=== PATIENT | female | born 1990 | race Asian ===

== ENCOUNTER 2016-11-29 20:49 | Emergency (ER) | payer OTHER ==
[~2016-11-29] VITALS: Ht 175.3 cm; Wt 77.2 kg
[2016-11-29 20:56] VITALS: Ht 175.3 cm; Wt 77.2 kg
[2016-11-29] MEDS ORDERED: SOD CHLORIDE 0.9% 1,000 ML IV STA (21:01)
[2016-11-29] MEDS ORDERED: LORAZEPAM 2 MG INJ IV ONE (21:30)
[2016-11-29 21:48] LABS: ADD SCAN DIFF NO
[2016-11-29 21:54] LABS: BASOPHIL # 0.1 10^3/ul (0.0-0.1); BASOPHILS % 0.7 % (0.0-2.0); EOSINOPHILS # 0.1 10^3/ul (0.0-0.5); EOSINOPHILS % 0.9 % (0.0-7.0); HEMATOCRIT 43.2 % (37.0-47.0); HEMOGLOBIN 14.8 g/dl (12.0-16.0); LYMPHOCYTES # 1.7 10^3/ul (0.8-2.9); LYMPHOCYTES % 22.8 % (15.0-51.0); MEAN CORPUSCULAR HEMOGLOBIN 31.6 pg (29.0-33.0); MEAN CORPUSCULAR HGB CONC 34.3 g/dl (32.0-37.0); MEAN CORPUSCULAR VOLUME 92.3 fl (82.0-101.0); MEAN PLATELET VOLUME 8.9 fl (7.4-10.4); MONOCYTE # 0.5 10^3/ul (0.3-0.9); NEUTROPHIL # 5.2 10^3/ul (1.6-7.5); NEUTROPHILS % 69.3 % (39.0-77.0); PLATELET COUNT 276 10^3/UL (140-415); RED BLOOD COUNT 4.68 10^6/ul (4.20-5.40); RED CELL DISTRIBUTION WIDTH 11.7 % (11.5-14.5); WHITE BLOOD COUNT 7.5 10^3/ul (4.8-10.8)
[2016-11-29 21:56] LABS: ADD UMIC YES; URINE BILIRUBIN (Dip) NEGATIVE (NEGATIVE); URINE BLOOD (Dip) TRACE (NEGATIVE); URINE COLOR YELLOW (YELLOW); URINE GLUCOSE (Dip) NEGATIVE (NEGATIVE); URINE KETONES (Dip) NEGATIVE (NEGATIVE); URINE LEUKOCYTE ESTERASE (Dip) NEGATIVE (NEGATIVE); URINE NITRITE (Dip) NEGATIVE (NEGATIVE); URINE TOTAL PROTEIN (Dip) NEGATIVE (NEGATIVE); URINE UROBILINOGEN (Dip) 0.2 E.U./dL (0.1-1.0)
[2016-11-29] MEDS ORDERED: LORA-186 PO (22:04)
[2016-11-29] MEDS ORDERED: IBUP200C11 PO (22:04)
[2016-11-29] MEDS ORDERED: DAYQUIL PO (22:04)
[2016-11-29] MEDS ORDERED: NYQUIL PO (22:04)
[2016-11-29 22:06] LABS: URINE RBCS 0-2 /HPF (0)
[2016-11-29 22:07] LABS: SQUAMOUS EPITHELIAL CELL,UR RARE
[2016-11-29 22:10] LABS: ALBUMIN 5.5 g/dl (3.3-4.9); CHLORIDE 101 mmol/L (97-110)
[2016-11-29 22:11] LABS: SODIUM 142 mmol/L (135-144)
[2016-11-29 22:13] LABS: ASPARTATE AMINO TRANSFERASE 25 IU/L (15-46); BILIRUBIN,INDIRECT 0.3 mg/dl (0-1.1); BILIRUBIN,TOTAL 0.3 mg/dl (0.2-1.3); CARBON DIOXIDE 23 mmol/L (21-31); CREATININE 0.67 mg/dl (0.44-1.00); TOTAL PROTEIN 9.7 g/dl (6.1-8.1)
[2016-11-29 22:14] LABS: ALANINE AMINOTRANSFERASE 26 IU/L (13-69); ALKALINE PHOSPHATASE 76 IU/L (42-121); ANION GAP 21 (8-16); BLOOD UREA NITROGEN 11 mg/dl (7-20); CALCIUM 9.9 mg/dl (8.4-10.2); GLUCOSE 95 mg/dl (70-220)
--- NOTE | 2016-11-29 22:22 | ERD ---
ER Documentation Chief Complaint Date/Time DATE: 11/29/16 TIME: 22:16 Chief Complaint dizziness, weakness x15 mins Hr >157. code green on 3rd floor staff. HPI 26-year-old woman complains of 10-15 minutes paresthesias, dizziness and palpitations shortly after drinking a caffeinated "monster" drink. She denies loss of consciousness, no chest pain or shortness of breath, no fevers or chills , no vomiting or diarrhea. Patient denies calf or leg swelling. Patient states she has had similar less intense anxiety symptoms in the past. ROS All systems reviewed and are negative except as per history of present illness. Medications Home Meds Reported Medications [Nyquil/Dayquil] Unknown Strength No Conflict Check, PO PRN 11/29/16 Loratadine* (Claritin*) 10 Mg Tablet, 10 MG PO PRN, TAB 11/29/16 Ibuprofen* (Advil*) 200 Mg Capsule, 200 MG PO Q6H Y for PAIN, CAP 11/29/16 Allergies Allergies: Coded Allergies: avocado (Unverified Allergy, Unknown, ITCHINESS, SWOLLEN LIPS, 11/29/16) PMhx/Soc None Medical and Surgical Hx: pt denies Medical Hx, pt denies Surgical Hx History of Surgery: No Anesthesia Reaction: No Hx Neurological Disorder: No Hx Respiratory Disorders: No Hx Cardiac Disorders: No Hx Psychiatric Problems: No Hx Miscellaneous Medical Probl: No Hx Alcohol Use: Yes Hx Substance Use: No Hx Tobacco Use: Yes Smoking Status: Current every day smoker FmHx Family History: No diabetes Physical Exam Vitals Vital Signs Date Time Temp Pulse Resp B/P Pulse Ox O2 Delivery O2 Flow Rate FiO2 11/30/16 00:40 98.0 76 18 134/74 100 11/29/16 23:35 98.0 68 18 121/70 100 11/29/16 20:56 98.0 110 24 128/91 100 Physical Exam GENERAL: Well-developed, well-nourished, appears anxious HEENT: Moist mucous membranes, pink conjunctiva, no cervical spine tenderness or step-off deformities, no goiter, no jaundice or icterus, extraocular movements intact without pain. No submandibular induration, and no pharyngeal erythema NEURO: Alert and oriented 3, cranial nerves II through XII intact bilaterally, pupils equal round reactive to light, no focal deficits or facial asymmetry, sensation intact distally Strength 5/5 in upper and lower extremities bilaterally CARDIAC: Regular rate and rhythm, no murmurs rubs or gallops LUNGS: Clear bilaterally no wheezing crackles or stridor ABDOMEN: Soft nontender, no guarding, no rigidity, no rebound, no psoas sign no obturator sign. Normoactive bowel sounds SKIN: Warm and dry to touch, no abrasions, contusions, or hematomas, no lacerations, no ecchymosis, no target lesions, and without ulcers EXTREMITIES: No clubbing cyanosis or edema, calves are bilaterally symmetrical, no Homans sign, no popliteal cord sign. Distal pulses equal and bilateral PSYCH: Anxious Result Diagram: 11/29/16212911/29/162129 Results 24 hrs Laboratory Tests Test 11/29/16 21:15 11/29/16 21:30 Urine Color YELLOW Urine Clarity CLEAR Urine pH 7.0 Urine Specific [place] 1.010 Urine Ketones NEGATIVE Urine Nitrite NEGATIVE Urine Bilirubin NEGATIVE Urine Urobilinogen 0.2 E.U./dL Urine Leukocyte Esterase NEGATIVE Urine Microscopic RBC 0-2/HPF Urine Microscopic WBC 0-2/HPF Urine Squamous Epithelial Cells RARE Urine Hemoglobin TRACE Urine Glucose NEGATIVE% Urine Total Protein NEGATIVE White Blood Count 7.510^3/ul Red Blood Count 4.6810^6/ul Hemoglobin 14.8g/dl Hematocrit 43.2% Mean Corpuscular Volume 92.3fl Mean Corpuscular Hemoglobin 31.6pg Mean Corpuscular Hemoglobin Concent 34.3g/dl Red Cell Distribution Width 11.7% Platelet Count 91169^3/UL Mean Platelet Volume 8.9fl Neutrophils % 69.3% Lymphocytes % 22.8% Monocytes % 6.0% Eosinophils % 0.9% Basophils % 0.7% Nucleated Red Blood Cells % 0.0/100WBC Neutrophils # 5.210^3/ul Lymphocytes # 1.710^3/ul Monocytes # 0.510^3/ul Eosinophils # 0.110^3/ul Basophils # 0.110^3/ul Nucleated Red Blood Cells # 0.010^3/ul Sodium Level 142mmol/L Potassium Level 3.0mmol/L Chloride Level 101mmol/L Carbon Dioxide Level 23mmol/L Anion Gap 21 Blood Urea Nitrogen 11mg/dl Creatinine 0.67mg/dl Glucose Level 95mg/dl Calcium Level 9.9mg/dl Total Bilirubin 0.3mg/dl Direct Bilirubin 0.00mg/dl Indirect Bilirubin 0.3mg/dl Aspartate Amino Transf (AST/SGOT) 25IU/L Alanine Aminotransferase (ALT/SGPT) 26IU/L Alkaline Phosphatase 76IU/L Troponin I < 0.012ng/ml Total Protein 9.7g/dl Albumin 5.5g/dl Globulin 4.20g/dl Albumin/Globulin Ratio 1.30 Lipase 129U/L Current Medications Medications (Trade) Dose Ordered Sig/John Route PRN Reason Start Time Stop Time Status Last Admin Dose Admin Sodium Chloride (NS) 1,000 ml @ 1,000 mls/hr Q1H STAT IV 11/29/16 21:01 11/29/16 22:00 DC 11/29/16 21:32 Lorazepam (Ativan) 0.5 mg ONCE ONCE IV 11/29/16 21:30 11/29/16 21:31 DC 11/29/16 21:32 Procedures/MDM IV line was established patient was placed on cardiac cath tech rhythm strip revealed a sinus rhythm at about 80 bpm with upright P and T waves. EKG performed, read by me reveals a normal sinus rhythm at 85 bpm, normal axis, right ventricular conduction delay with a QRS duration of 100 ms, no concerning ST elevations or depressions noted. Chest X-ray 1V Interpreted by me: Soft Tissue: No acute abnormalities Bones: No acute abnormalities Mediastinum/Cardiac Silhouette/Lungs: No acute abnormalities I administered 1 L normal saline intravenously and lorazepam 0.5 mg IV with excellent effect. Patient symptoms resolved. CBC was unremarkable, electrolytes revealed hypokalemia at 3 consistent with recent hyperventilation syndrome, liver function tests were normal, troponin negative. Urinalysis was negative for infection. Differential diagnoses considered, included but not limited to acute coronary syndrome, pulmonary embolism, aortic dissection, abdominal aortic aneurysm, sepsis, stroke, meningitis, encephalitis, pneumonia, appendicitis, cholecystitis , bowel obstruction, pyelonephritis, nephrolithiasis, cystitis, as well as metabolic, hematologic, and electrolyte abnormalities. As well as abscess, cellulitis, fractures, and dislocations. Patient feels much better at this time, and vital signs are normal, symptoms have improved. I did give strict instructions to return to the ED if symptoms continue or worsen, patient will otherwise follow-up with primary care physician. Patient understood instructions and agreed to plan. Departure Diagnosis: Primary Impression: Dizziness Additional Impression: Hyperventilation syndrome Condition: Good Patient Instructions: Dizziness, Unk Cause NORY GAYLE MD November 29, 2016 22:22
--- NOTE | 2016-11-29 22:31 | RADRPT ---
PROCEDURE: XR Chest. CLINICAL INDICATION: Infiltrate. TECHNIQUE: Single frontal view of the chest. COMPARISON: None. FINDINGS: The cardiomediastinal silhouette is within normal limits. The lungs are clear. No signs of pleural f luid or pneumothorax are seen. The osseous structures and soft tissues are unremarkable. IMPRESSION: No evidence for active cardiopulmonary disease. RPTAT: [facility] Physician Chantelle Date Time Electronically viewed and signed by Physician Chantelle on 11/29/2016 22:31 RS/
[2016-11-29 22:43] LABS: TROPONIN-I < 0.012 ng/ml (0.00-0.12)
[2016-11-30 00:40] VITALS: BP 134/74; PULSE 76; RESP 18; TEMP 98
== END 2016-11-30 00:45 | disposition home or self-care (01) ==
LOC: E/R 20:49
DX: R42 Dizziness and giddiness (principal); F17.210 Nicotine dependence, cigarettes, uncomplicated; F45.8 Other somatoform disorders
CPT/HCPCS: 36415; 71010; 80053; 81001; 83690; 84484; 85025; 93005; 96374; 99285; J2060; J7030; 81003